=== PATIENT | female | born 1965 | race Two or more races ===

== ENCOUNTER 2019-10-30 15:21 | Inpatient (IN) | payer MEDICARE, OTHER ==
[~2019-10-30] VITALS: Ht 157.5 cm; Wt 92.5 kg
[2019-10-30] MEDS ORDERED: CLON0.5T4 PO (15:37)
[2019-10-30] MEDS ORDERED: OMEP20CA15 PO (15:37)
[2019-10-30] MEDS ORDERED: DIVA-78 PO (15:37)
[2019-10-30] MEDS ORDERED: ATOR20TA PO (15:37)
[2019-10-30] MEDS ORDERED: LOSA100T31 PO (15:37)
[2019-10-30] MEDS ORDERED: BENZ2TAB7 PO (15:37)
[2019-10-30] MEDS ORDERED: TRAZ-182 PO (15:37)
[2019-10-30] MEDS ORDERED: QUET100T PO (15:37)
[2019-10-30] MEDS ORDERED: cholecalciferol PO (15:37)
[2019-10-30] MEDS ORDERED: CALC-1104 PO (15:37)
[2019-10-30] MEDS ORDERED: CALC500T51 PO (15:37)
[2019-10-30] MEDS ORDERED: ASCO-352 PO (15:37)
[2019-10-30] MEDS ORDERED: ACET325T53 PO (15:44)
[2019-10-30 15:47] LABS: BASOPHILS % (AUTO) 0.6 % (0.0-2.0); HEMATOCRIT 34 % (33-45); HEMOGLOBIN 11.3 g/dL (11.5-14.8); LYMPHOCYTES # (AUTO) 2.7 /CMM (0.8-4.8); LYMPHOCYTES % (AUTO) 38.9 % (20.0-44.0); MEAN CORPUSCULAR HGB CONC 33 g/dl (31.0-36.0); MEAN CORPUSCULAR VOLUME 90 fL (82-100); MONOCYTES # (AUTO) 0.5 /CMM (0.1-1.30); MONOCYTES % (AUTO) 7.3 % (2.0-12.0); NEUTROPHILS # (AUTO) 3.7 /CMM (1.8-8.9); NEUTROPHILS % (AUTO) 53.2 % (43.0-81.0); PLATELET COUNT (AUTO) 246 /CMM (150-450); RED BLOOD CELL COUNT(AUTO) 3.76 MIL/uL (4.0-5.2); WHITE BLOOD COUNT (AUTO) 6.9 K/uL (4.3-11.0)
--- NOTE | 2019-10-30 15:52 | NUR ---
NURSING SUP GAVE 219A.
[2019-10-30 15:55] LABS: CALCIUM, SERUM 9.7 mg/dL (8.5-10.1); CARBON DIOXIDE 29 mmol/L (21-32); CHLORIDE 103 mmol/L (98-107); CREATININE 0.7 mg/dL (0.6-1.3); GLUCOSE 101 mg/dL (74-106); POTASSIUM 3.9 mmol/L (3.5-5.1); SODIUM SERUM 140 mmol/L (136-145); UREA NITROGEN, BLOOD 8 mg/dL (7-18)
[2019-10-30 16:00] LABS: ALANINE AMINOTRANSFERASE 10 U/L (12-78); ALCOHOL, BLOOD < 3 mg/dL (0-0); ALKALINE PHOSPHATASE 49 U/L (46-116); ASPARTATE AMINOTRANSFERASE 12 U/L (15-37); BILIRUBIN,DIRECT 0.1 mg/dL (0.0-0.2); BILIRUBIN,TOTAL 0.3 mg/dL (0.2-1.0); TOTAL PROTEIN, SERUM 7.4 g/dL (6.4-8.2)
--- NOTE | 2019-10-30 16:00 | NUR ---
ER- RN PATIENT A/O X4 AWAKE PATIENT STATES SHE CURRENTLY DOES NOT RECIVED HER MEDICATIONS IN HER FACILITY. SHE DOESNT LIKE THAT. THAT PATIENT TALKS ABOUT RANDOM EVENTS. AND IS AWATING TRANSFER TO GPS. WAITING FOR TO GIVE REPORT TO PATIENT PATIENT IS HR 84 SATURATING WELL AT 100 % PATIENT BP 125/ 80 . BED LOCKED LOWEST POSITION 2X RAILS UP.
[2019-10-30 16:03] LABS: ACETAMINOPHEN 0 ug/ml (10-30); SALICYLATE 0.8 mg/dL (2.8-20.0)
--- NOTE | 2019-10-30 17:55 | NUR ---
CALLED [facility] FOR [place].
--- NOTE | 2019-10-30 18:42 | NUR ---
[facility]INKY CELL MAKER AT BEDSIDE.
--- NOTE | 2019-10-30 20:03 | NUR ---
XFER TO GPS UNIT REPORT GIVEN TO CHARITO. PATIENT ACCEPTED. PATIENT IS STABLE CONDITION MEDICALLY
[2019-10-30 23:35] VITALS: BP 119/73
[2019-10-31] MEDS ORDERED: MAG HYDROX/AL HYDROX/SIMETH 30 ML UDC PO PRN (00:30)
[2019-10-31] MEDS ORDERED: TEMAZEPAM 7.5 MG CAPSULE PO PRN (00:30)
[2019-10-31] MEDS ORDERED: LORAZEPAM 0.5 MG TABLET PO PRN (00:30)
--- NOTE | 2019-10-31 03:21 | NUR ---
GPS RN NOTES RECEIVED A 53 Y/O FEMALE FROM ER INITIALLY MATHIEU BRICEÑO. PT ARRIVED ON THIS UNIT AT 2008 VIA STRETCHER WITH 2 ER ESCORTS. PT ADMITTED ON 5150 FOR GD. HOLD WAS PLACED 10/30/2019 @ 1910. PER HOLD PT WAS PLACED ON HOLD DUE TO INCREASED AGITATION, PARANOIA, AND THINKING FACILITY STAFF IS STEALING HER PERSONAL BELONGINGS. REFUSING STAFF TO CARE FOR HER, PREOCCUPIED WITH DIFFERENT SOMATIC COMPLIANT. PT HAS ALSO NOT SLEPT WELL IN THE LAST MONTH. NEEDY, DEMANDING, GETS AGITATED WHEN SHE DOES NOT GET HER WAY. UPON FACE TO FACE EVALUATION, PT PRESENTS A/O X2, APPEARS DEPRESSED, UNCOOPERATIVE, LABILE, PARANOID, DISHEVELED, DISORIENTED AND DISORGANIZED. PT WAS UPSET AND YELLING "I JUST HAD A HEART ATTACK BECAUSE YOU TOOK A PICTURE OF ME". DIFFICULT TO REDIRECT. PT IS AMBULATORY WITH STEADY GAIT. REFUSED TO SIGN ADMISSION PAPERS. HAS IRRITATION AND REDNESS ON HER GROIN AREA, HAS NON-PITTING EDEMA ON BLE. ACCU CHEK DONE/BS 85. NO S/S OF ACUTE DISTRESS. DENIES SI, HI, PAIN OR ANXIETY AT THIS TIME. PT BREATHING IS EVEN AND UNLABORED WITH EQUAL RISE AND FALL OF THE CHEST WITH SPO2 OF 96%. PT IS ALLERGIC TO PENICILLIN AND LITHIUM AND IS FULL CODE. PT HISTORY INCLUDES HTN, PNEUMONIA, DVT, DEPRESSION, BIPOLAR,AND SCHIZOPHRENIA. PT BELONGING AND CONTRABAND WERE CHECKED, PT HAS NO CONTRABAND EXCEPT FOR SHOE LACES WHICH HAS BEEN PLACED IN LOCKED LOCKER. PT ADVISED OF HOLD. PT RIGHTS DISCUSSED AND PT HANDBOOK PROVIDED. GUIDE TO PRESCRIPTION MEDICATION GIVEN. PT WILL BE UNDER THE CARE OF DR DELANEY PSYCHIATRIST AND [facility] INTERNAL [facility]. PT ORIENTED TO UNIT, STAFF, DOCTORS, CARE PLAN AND UNIT POLICIES. BOTH DOCTORS NOTIFIED OF PT ADMISSION AND MED RECONCILIATION DONE. MRSA BOTH NARES DONE AT ER. FALL PRECAUTION INITIATED, SAFETY PRECAUTION INITIATED WITH Q 15MINUTES OBSERVATION. BED IN LOW LOCKED POSITION, SIDE RAILS UP X2. PT NEEDS MET. WILL CONTINUE TO MONITOR FOR SAFETY, MOOD AND BEHAVIOR AND ENDORSE TO AM NURSE.
--- NOTE | 2019-10-31 06:32 | NUR ---
GPS RN NOTE CALLED PT SON/NEXT-OF-KIN BERNARD FLORES AT 0630 AND LEFT A MESSAGE FOR HIM TO CALL [facility]. WILL ENDORSE TO AM NURSE.PT SLEEPING COMFORTABLY WITH NO S/S OF RESPIRATORY DISTRESS.
[2019-10-31 07:54] LABS: CREATININE 0.6 mg/dL (0.6-1.3)
[2019-10-31 08:00] VITALS: BP 101/59
[2019-10-31] MEDS: LORAZEPAM 0.5 MG TABLET PO PRN (09:15)
--- NOTE | 2019-10-31 11:09 | NUR ---
FACILITY CONTACT: SW contacted [facility] Address: [address] [place] [address] and spoke with Myesha, physician support coordinator who stated pt is able to return to the facility once stable for discharge. Myesha, stated that pt is self responsible and that her daughter and son are not involved with pts care and treatment.
[2019-10-31] MEDS ORDERED: CALCIUM CARBONATE 500 MG TAB.CHEW PO PRN (13:00)
[2019-10-31] MEDS: LOSARTAN POTASSIUM 50 MG TABLET PO SCH (13:00)
[2019-10-31] MEDS: PANTOPRAZOLE 40 MG TABLET.DR PO SCH (13:11)
--- NOTE | 2019-10-31 13:55 | NUR ---
INITIAL DISCHARGE PLAN: Pt will return to [facility] Address: [address] [place] [address] . AZUL spoke with Myesha hospital wellness coordinator who stated pt is able to return to the facility once stable for discharge. AZUL will help form a safe and proper discharge in collaboration with .
--- NOTE | 2019-10-31 15:19 | NUR ---
FACILITY CONTACT: AZUL received a call from Angi, director non profit at [facility] Address: [address] [place] [address] stating that pt use to be a pt at their facility before pt was transferred to [facility] and wishes for pt to be transferred to their facility once pt is stable. AZUL stated that she will consult with MD and pt for appropriate discharge planning. Angi understood.
[2019-10-31 16:00] VITALS: BP 129/72
[2019-10-31] MEDS: BENZTROPINE MESYLATE (1 MG) 1 MG TABLET PO SCH (16:20)
[2019-10-31] MEDS: DIVALPROEX SODIUM 500 MG TABLET.DR PO SCH (16:20)
[2019-10-31 20:29] VITALS: BP_SYST 118; BP_SYST 138; BP_DIAS 71; BP_DIAS 73
[2019-10-31] MEDS ORDERED: OLANZAPINE 5 MG TABLET PO SCH (21:00)
[2019-10-31] MEDS: ATORVASTATIN 10 MG TABLET PO SCH (21:06)
--- NOTE | 2019-10-31 21:34 | NUR ---
GPS/PRODUCE SERVICE TEAM MEMBER NURSING NOTES: PT. IN HER ROOM AWAKE. NO DISTRESS OR AGITATION NOTED. RESTLESS AND NEEDY AT TIMES. NO C/O PAIN OR DISCOMFORT. SAFETY ENVIRONMENT OBSERVED AT ALL TIMES. WILL CONTINUE TO MONITOR Q 15 MIN FOR SAFETY AND BEHAVIOR.
[2019-11-01 07:35] LABS: CALCIUM, SERUM 8.7 mg/dL (8.5-10.1); CREATININE 0.7 mg/dL (0.6-1.3); POTASSIUM 3.6 mmol/L (3.5-5.1)
[2019-11-01 07:43] LABS: BASOPHILS % (AUTO) 0.3 % (0.0-2.0); EOSINOPHILS % (AUTO) 0.1 % (0.0-6.0); HEMATOCRIT 33 % (33-45); HEMOGLOBIN 10.9 g/dL (11.5-14.8); LYMPHOCYTES # (AUTO) 3.2 /CMM (0.8-4.8); LYMPHOCYTES % (AUTO) 50.6 % (20.0-44.0); MEAN CORPUSCULAR HGB CONC 33 g/dl (31.0-36.0); MEAN CORPUSCULAR VOLUME 90 fL (82-100); MONOCYTES # (AUTO) 0.5 /CMM (0.1-1.30); MONOCYTES % (AUTO) 8.2 % (2.0-12.0); NEUTROPHILS # (AUTO) 2.6 /CMM (1.8-8.9); NEUTROPHILS % (AUTO) 40.8 % (43.0-81.0); PLATELET COUNT (AUTO) 238 /CMM (150-450); RED BLOOD CELL COUNT(AUTO) 3.67 MIL/uL (4.0-5.2); WHITE BLOOD COUNT (AUTO) 6.3 K/uL (4.3-11.0)
[2019-11-01 08:29] VITALS: BP 118/63
[2019-11-01] MEDS: BENZTROPINE MESYLATE (1 MG) 1 MG TABLET PO SCH ×2 (08:34→16:40)
[2019-11-01] MEDS: DIVALPROEX SODIUM 500 MG TABLET.DR PO SCH ×2 (08:34→16:41)
[2019-11-01] MEDS: CALCIUM CARBONATE (1250) 500 MG TABLET PO SCH (08:34)
[2019-11-01] MEDS: LOSARTAN POTASSIUM 50 MG TABLET PO SCH (08:34)
[2019-11-01] MEDS: PANTOPRAZOLE 40 MG TABLET.DR PO SCH (08:34)
[2019-11-01] MEDS: ASCORBIC ACID 500 MG TABLET PO SCH (08:36)
[2019-11-01] MEDS: OLANZAPINE 2.5 MG TABLET PO SCH (12:36)
[2019-11-01 16:00] VITALS: BP 145/77
--- NOTE | 2019-11-01 16:35 | NUR ---
RN-CO: Patient is yelling " I don't like Filipinos !" " They are impostors." I speak a lot of language !" " No Filipinos should not be in [place]!"
[2019-11-01] MEDS: ACETAMINOPHEN 325 MG TABLET PO PRN (16:41)
[2019-11-01] MEDS: LORAZEPAM 0.5 MG TABLET PO PRN (16:45)
[2019-11-01 20:00] VITALS: BP 101/60
[2019-11-01] MEDS: ATORVASTATIN 10 MG TABLET PO SCH (21:17)
[2019-11-01] MEDS: OLANZAPINE 5 MG TABLET PO SCH (21:17)
[2019-11-02 08:00] VITALS: BP 142/72
[2019-11-02] MEDS: PANTOPRAZOLE 40 MG TABLET.DR PO SCH (08:21)
[2019-11-02] MEDS: ASCORBIC ACID 500 MG TABLET PO SCH (08:24)
[2019-11-02] MEDS: LOSARTAN POTASSIUM 50 MG TABLET PO SCH (08:24)
[2019-11-02] MEDS: OLANZAPINE 2.5 MG TABLET PO SCH (08:24)
[2019-11-02] MEDS: BENZTROPINE MESYLATE (1 MG) 1 MG TABLET PO SCH ×2 (08:24→16:34)
[2019-11-02] MEDS: DIVALPROEX SODIUM 500 MG TABLET.DR PO SCH ×2 (08:24→16:34)
[2019-11-02] MEDS: CALCIUM CARBONATE (1250) 500 MG TABLET PO SCH (08:24)
--- NOTE | 2019-11-02 10:07 | NUR ---
GPS RN NOTE: RECEIVED PATIENT LYING IN BED. SHOWERED AND PERFORMED AM CARE. ATE FULL MEAL FOR BREAKFAST. PATIENT IS COOPERATIVE WITH PLAN OF CARE AND MEDICATION REGIMEN. DENIES PSYCHIATRIC PROBLEMS BUT DOES ADMIT TO ANXIETY. STATES THAT SHE HAS A LOT OF MEDICAL DIAGNOSES AND HAS BEEN HOSPITALIZED MANY TIMES BEFORE. PT IS AOX2, HYPERVERBAL, FRIENDLY. DENIES SI/HI AND VAH. BED IN LOCKED POSITION, 2 SIDE RAILS UP. FALL PRECAUTIONS IN PLACE. ENVIRONMENTAL CHECKS DONE. WILL CONTINUE TO MONITOR Q15 FOR MOOD, SAFETY AND BEHAVIOR.
[2019-11-02 16:00] VITALS: BP 155/71
[2019-11-02 20:00] VITALS: BP 113/69
[2019-11-02] MEDS: LORAZEPAM 0.5 MG TABLET PO PRN (20:02)
--- NOTE | 2019-11-02 20:08 | NUR ---
GPS RN NOTE RECEIVED PATIENT IN THE BATHROOM, AWAKE, ALERT AND ORIENTED X2. PT CAME OUT AND WAS IN HALLWAY SITTING IN W/C, RESTLESS, DISORGANIZED AND DISORIENTED. RESPONDING TO INTERNAL STIMULI. TALKING TO SELF AND TO ANY STAFF THAT WALKS BY WITHOUT MAKING ANY SENSE. THIS NURSE TRIED TO REORIENT PT TO PRESENT SITUATION BUT PT KEPT ON TALKING ABOUT HOW SHE WENT TO [facility], HOW SHE CALLED 911 IN A HOSPITAL, HOW [place] ARE EVERYWHERE. PT GIVEN ATIVAN 0.5MG 1 TAB PO. NO S/S OF ANY DISTRESS AT THIS TIME. PT BREATHING IS EVEN,UNLABORED WITH EQUAL RISE AND FALL OF THE CHEST. ON ROOM AIR. SEEN IN UNIT WALKING AND TALKING TO STAFF. NO COMPLAINS OF PAIN. PT IS MEDICATION COMPLIANT. SAFETY CHECKS DONE. FALL PRECAUTION CONTINUED. BED ALARM ON. BED IN LOW LOCKED POSITION. CALL LIGHT WITHIN REACH. OFFERED SNACKS AND FLUID TOLERATED. WILL CONTINUE TO MONITOR Q15MIN FOR MOOD, SAFETY AND BEHAVIOR.
--- NOTE | 2019-11-02 20:16 | NUR ---
PLEASE DISREGARD BLADIMIR DAILY FS FOR THIS PT WRITTEN 1949, NOTE WAS WRITTEN BEFORE 1999
[2019-11-02] MEDS: OLANZAPINE 5 MG TABLET PO SCH (21:37)
[2019-11-02] MEDS: ATORVASTATIN 10 MG TABLET PO SCH (21:38)
[2019-11-02] MEDS: TEMAZEPAM 7.5 MG CAPSULE PO PRN (22:40)
[2019-11-02] MEDS: ACETAMINOPHEN 325 MG TABLET PO PRN (22:40)
--- NOTE | 2019-11-02 22:42 | NUR ---
GPS RN NOTE PT COMPLAINED OF BLE KNEE PAIN, TYLENOL 325MG 2 TABS 650 GIVEN PO. RESTORIL 7.5MG 1 TAB GIVEN PO PER PT REQUEST D/O INABILITY TO SLEEP. WILL CONTINUE TO MONITOR PT.
[2019-11-03] MEDS: BENZTROPINE MESYLATE (1 MG) 1 MG TABLET PO SCH ×2 (08:01→16:20)
[2019-11-03] MEDS: PANTOPRAZOLE 40 MG TABLET.DR PO SCH (08:01)
[2019-11-03] MEDS: CALCIUM CARBONATE (1250) 500 MG TABLET PO SCH (08:01)
[2019-11-03] MEDS: LOSARTAN POTASSIUM 50 MG TABLET PO SCH (08:02)
[2019-11-03] MEDS: DIVALPROEX SODIUM 500 MG TABLET.DR PO SCH ×2 (08:02→16:20)
[2019-11-03] MEDS: ASCORBIC ACID 500 MG TABLET PO SCH (08:02)
[2019-11-03] MEDS: OLANZAPINE 2.5 MG TABLET PO SCH (08:02)
[2019-11-03 08:06] VITALS: BP 128/70
--- NOTE | 2019-11-03 09:06 | NUR ---
GPS RN NURSING NOTE: RECEIVED PATIENT LYING IN BED. ATE FULL MEAL FOR BREAKFAST. PATIENT IS DISPLAYING NO S/S OF APPARENT DISTRESS AT THIS TIME. PATIENT BREATHING IS UNLABORED WITH EQUAL RISE AND FALL OF THE CHEST.PATIENT IS COOPERATIVE WITH PLAN OF CARE AND MEDICATION REGIMEN. DENIES PSYCHIATRIC PROBLEMS BUT DOES ADMIT TO ANXIETY. STATES THAT SHE HAS A LOT OF MEDICAL DIAGNOSES AND HAS BEEN HOSPITALIZED MANY TIMES BEFORE. PT IS AOX2, HYPERVERBAL, FRIENDLY. DENIES SI/HI AND VAH. BED IN LOCKED POSITION, 2 SIDE RAILS UP. FALL PRECAUTIONS IN PLACE. ENVIRONMENTAL CHECKS DONE. WILL CONTINUE TO MONITOR Q15 FOR MOOD, SAFETY AND BEHAVIOR.
[2019-11-03] MEDS: LORAZEPAM 0.5 MG TABLET PO PRN (10:52)
[2019-11-03] MEDS: ACETAMINOPHEN 325 MG TABLET PO PRN ×2 (10:54→23:48)
[2019-11-03] MEDS ORDERED: TRAZODONE 50 MG TABLET PO PRN (12:00)
[2019-11-03] MEDS ORDERED: ALBUTEROL FS 2.5 MG/0.5 ML VIAL.NEB NEB PRN (13:30)
[2019-11-03 15:57] VITALS: BP 130/70
[2019-11-03 20:06] VITALS: BP 145/79
[2019-11-03] MEDS: OLANZAPINE 5 MG TABLET PO SCH (21:46)
[2019-11-03] MEDS: ATORVASTATIN 10 MG TABLET PO SCH (21:47)
--- NOTE | 2019-11-03 22:13 | NUR ---
GPS RN NOTE PT RIGHT FOOT EDEMA HAS CHANGED FROM NON-PITTING TO ABOUT +1. PT HAS RECENTLY HAD HER FOOT SCANNED AT [facility]. PER AM NURSE, RELEASE OF INFORMATION FORM HAS BEEN SIGNED BY PT AND STAFF TRIED TO SEND FAX, BUT [facility] FAX LINE WAS NOT GOING THROUGH. WILL ENDORSE TO AM SHIFT TO FAX FORMS AGAIN. WILL CONTINUE TO MONITOR PT.
[2019-11-03] MEDS: TEMAZEPAM 7.5 MG CAPSULE PO PRN (23:47)
--- NOTE | 2019-11-04 06:44 | NUR ---
PT SKIN ASSESSMENT DONE, PICTURES TAKEN AND PLACED IN CHART. NO NEW SKIN PROBLEMS. PT AWAKE, ALERT AND ORIENTED X 2, SITTING IN W/C IN HALLWAY. NO S/S OF ANY DISTRESS. NO COMPLAINS OF PAIN. WILL ENDORSE TO AM NURSE.
[2019-11-04] MEDS: PANTOPRAZOLE 40 MG TABLET.DR PO SCH (07:30)
[2019-11-04 08:00] VITALS: BP 134/93
[2019-11-04] MEDS: OLANZAPINE 2.5 MG TABLET PO SCH (08:18)
[2019-11-04] MEDS: CALCIUM CARBONATE (1250) 500 MG TABLET PO SCH (08:18)
[2019-11-04] MEDS: BENZTROPINE MESYLATE (1 MG) 1 MG TABLET PO SCH ×2 (08:19→16:20)
[2019-11-04] MEDS: LORAZEPAM 0.5 MG TABLET PO PRN ×3 (08:19→22:51)
[2019-11-04] MEDS: DIVALPROEX SODIUM 500 MG TABLET.DR PO SCH ×2 (08:19→16:22)
[2019-11-04] MEDS: ASCORBIC ACID 500 MG TABLET PO SCH (08:19)
[2019-11-04] MEDS: LOSARTAN POTASSIUM 50 MG TABLET PO SCH (08:22)
[2019-11-04] MEDS: FERROUS SULFATE (325 MG) 325 MG/TAB TABLET PO SCH (08:22)
--- NOTE | 2019-11-04 15:03 | NUR ---
GROUP NOTE: Pt was present in group on this present day discussing the topic of "discharge planning." S: "Dr. Combs is my commissioner public works and I will go to an apartment and apply for section 8 because that is my right and I am disabled. I have a informatics nurse specialist and that is what I want and that is what I demand, thank you Pepe Rowe." O: SW attempted to provide insight into mental illness and pt became argumentative stating that she does not have a mental illness and that she only has medical issues. SW also informed SW that her psychiatrist is Dr. Franz and she stated it was not and that her informatics nurse specialist chose Dr. Combs. Pt was frequently redirected as she was hyperverbal and manic. A: Pt was hyper verbal and manic and was frequently interrupting the group and was unable to stay on topic. P: SW will continue to assess pts level of insight into her mental illness and ability to participate in group milieu.
--- NOTE | 2019-11-04 15:32 | NUR ---
RN NOTE: Medicated with ativan 0.5 mg po for anxirty will continue to monitor .
[2019-11-04] MEDS: ACETAMINOPHEN 325 MG TABLET PO PRN (15:37)
[2019-11-04 16:00] VITALS: BP 151/93
--- NOTE | 2019-11-04 19:20 | NUR ---
RN OPENING NOTES: PT. RESTING IN BED ,CONFUSED PARANOID , HYPERVERBAL ,DISORGNIZED EASILY AGITATED , ALL NEEDS ATTENDED ANTICIPATED, ENCOURAGED PT. TO VERBALIZED ANY FEELING , NO ACUTE DISTRESS NOTED , NEEDS FREQUENTLY REDIRECTIONS , REALITY ORIENTIONS PROVIDED, WILL CONTINUITY WITH CARE.
[2019-11-04 20:01] VITALS: BP 128/80
[2019-11-04] MEDS ORDERED: OLANZAPINE 5 MG TABLET PO SCH (21:00)
[2019-11-04] MEDS: ATORVASTATIN 10 MG TABLET PO SCH (21:04)
--- NOTE | 2019-11-04 22:52 | NUR ---
RN NOTES : ANXIETY PT. C/O FEELING ANXIETY , ATIVAN 0.5 MG PO PRN GIVEN PER PT. REQUEST, WILL CONTINUE TO MONITOR.
[2019-11-05 06:45] LABS: BASOPHILS % (AUTO) 0.6 % (0.0-2.0); HEMATOCRIT 37 % (33-45); HEMOGLOBIN 12.4 g/dL (11.5-14.8); LYMPHOCYTES # (AUTO) 4.2 /CMM (0.8-4.8); LYMPHOCYTES % (AUTO) 56.4 % (20.0-44.0); MEAN CORPUSCULAR HGB CONC 33 g/dl (31.0-36.0); MEAN CORPUSCULAR VOLUME 90 fL (82-100); MONOCYTES # (AUTO) 0.6 /CMM (0.1-1.30); MONOCYTES % (AUTO) 8.2 % (2.0-12.0); NEUTROPHILS # (AUTO) 2.6 /CMM (1.8-8.9); NEUTROPHILS % (AUTO) 34.8 % (43.0-81.0); PLATELET COUNT (AUTO) 303 /CMM (150-450); RED BLOOD CELL COUNT(AUTO) 4.17 MIL/uL (4.0-5.2); WHITE BLOOD COUNT (AUTO) 7.4 K/uL (4.3-11.0)
[2019-11-05 07:13] LABS: ALBUMIN 3.2 g/dL (3.4-5.0); BILIRUBIN,TOTAL 0.3 mg/dL (0.2-1.0); CREATININE 0.8 mg/dL (0.6-1.3); POTASSIUM 4.2 mmol/L (3.5-5.1); TOTAL PROTEIN, SERUM 7.9 g/dL (6.4-8.2)
[2019-11-05] MEDS: PANTOPRAZOLE 40 MG TABLET.DR PO SCH (07:59)
[2019-11-05 08:00] VITALS: BP 140/76
[2019-11-05] MEDS: OLANZAPINE 2.5 MG TABLET PO SCH (08:00)
[2019-11-05] MEDS: DIVALPROEX SODIUM 500 MG TABLET.DR PO SCH ×3 (08:00→16:31)
[2019-11-05] MEDS: ASCORBIC ACID 500 MG TABLET PO SCH (08:00)
[2019-11-05] MEDS: FERROUS SULFATE (325 MG) 325 MG/TAB TABLET PO SCH (08:00)
[2019-11-05] MEDS: LOSARTAN POTASSIUM 50 MG TABLET PO SCH (08:00)
[2019-11-05] MEDS: CALCIUM CARBONATE (1250) 500 MG TABLET PO SCH (08:00)
[2019-11-05] MEDS: BENZTROPINE MESYLATE (1 MG) 1 MG TABLET PO SCH ×2 (08:00→16:30)
[2019-11-05 09:11] LABS: NEUTROPHILS % (MANUAL) 31 (42-76)
[2019-11-05 09:12] LABS: LYMPHOCYTES % (MANUAL) 52 % (16-48); MONOCYTES % (MANUAL) 17 % (0-11.0)
--- NOTE | 2019-11-05 09:21 | NUR ---
GPS RN NOTE: RECEIVED PATIENT LYING IN BED. ATE FULL MEAL FOR BREAKFAST. PATIENT IS COOPERATIVE WITH PLAN OF CARE AND MEDICATION REGIMEN. ANXIOUS. OFFERED PRN MEDICATION. PT IS AOX2, HYPERVERBAL, FRIENDLY. DENIES SI/HI AND VAH. BED IN LOCKED POSITION, 2 SIDE RAILS UP. FALL PRECAUTIONS IN PLACE. ENVIRONMENTAL CHECKS DONE. WILL CONTINUE TO MONITOR Q15 FOR MOOD, SAFETY AND BEHAVIOR.
[2019-11-05] MEDS ORDERED: OLANZAPINE 2.5 MG TABLET PO ONE (09:30)
[2019-11-05] MEDS: LORAZEPAM 0.5 MG TABLET PO PRN (09:34)
--- NOTE | 2019-11-05 14:59 | NUR ---
GROUP NOTE: Pt was present in group discussing the topic of "insight into mental illness." S: "I am reading because I am becoming a doctor, a nurse, and 7th grade social studies teacher. I don't have mental problems everyone else here does. I'm going to a doctor and nurse conference at 2:30." O: Pt is hyperverbal and unable to comprehend group dynamic. Pt does not wait her turn to speak and rambles unrelated nonsensical things A: Pts reality and insight is impaired pt has not gained awareness of the reason for hospitalization and does not acknowledge she has a mental illness. P: Pt will continue to encourage regulation of mood and medication compliance.
[2019-11-05 16:00] VITALS: BP 137/73
[2019-11-05] MEDS: MAGNESIUM HYDROXIDE 30 ML UDC PO PRN (18:47)
[2019-11-05 20:29] VITALS: BP 135/78
[2019-11-05] MEDS: OLANZAPINE 5 MG TABLET PO SCH (21:07)
[2019-11-05] MEDS: ACETAMINOPHEN 325 MG TABLET PO PRN (21:08)
[2019-11-05] MEDS: ATORVASTATIN 10 MG TABLET PO SCH (21:08)
--- NOTE | 2019-11-05 21:08 | NUR ---
rn gps notes patient complaint of pain to ble states "06/06 can i have tylenol i have arthritis " prn tylenol given as ordered will continue to monitor for effectiveness.
[2019-11-06] MEDS: TEMAZEPAM 7.5 MG CAPSULE PO PRN ×2 (00:09→23:49)
[2019-11-06] MEDS: ACETAMINOPHEN 325 MG TABLET PO PRN (05:15)
[2019-11-06 08:00] VITALS: BP 146/78
[2019-11-06] MEDS: PANTOPRAZOLE 40 MG TABLET.DR PO SCH (08:26)
[2019-11-06] MEDS: BENZTROPINE MESYLATE (1 MG) 1 MG TABLET PO SCH ×2 (08:26→17:06)
[2019-11-06] MEDS: LOSARTAN POTASSIUM 50 MG TABLET PO SCH (08:26)
[2019-11-06] MEDS: DIVALPROEX SODIUM 500 MG TABLET.DR PO SCH ×3 (08:26→17:06)
[2019-11-06] MEDS: OLANZAPINE 2.5 MG TABLET PO SCH (08:26)
[2019-11-06] MEDS: ASCORBIC ACID 500 MG TABLET PO SCH (08:26)
[2019-11-06] MEDS: CALCIUM CARBONATE (1250) 500 MG TABLET PO SCH (08:26)
[2019-11-06] MEDS: FERROUS SULFATE (325 MG) 325 MG/TAB TABLET PO SCH (08:26)
[2019-11-06] MEDS: LORAZEPAM 0.5 MG TABLET PO PRN ×2 (08:26→14:08)
--- NOTE | 2019-11-06 08:55 | NUR ---
SNF REFERRAL: AZUL faxed SNF referral to Angi, director of undergraduate admissions at [facility] Address: [address] [place] [address] for review.
--- NOTE | 2019-11-06 15:03 | NUR ---
GROUP NOTE: Pt was present in group discussing the topic of "decision-making." Pt was very disorganized and paranoid, making nonsensical statements and is hypomanic. Pt is saying the staff urinated on her clothes and that they are stealing from her and also states that she does not have a mental illness. Pt kept interrupting group and was difficult to redirect her. Pt was unable to stay on topic.
[2019-11-06 16:00] VITALS: BP 158/96
--- NOTE | 2019-11-06 19:15 | NUR ---
GPS RN NOTE RECEIVED PATIENT RESTING IN HER BED, AWAKE, ALERT AND ORIENTED X2, DISORGANIZED, HYPERVERBAL AT TIMES. DENIES SI/HI AT THIS TIME. NO S/S OF ANY DISTRESS AT THIS TIME. PT BREATHING IS EVEN UNLABORED WITH EQUAL RISE AND FALL OF THE CHEST. STABLE ON ROOM AIR. NO C/O PAIN VERBALIZED AT THIS TIME. PT IS MEDICATION COMPLIANT. ENVIRONMENTAL SAFETY CHECKS DONE. FALL PRECAUTION CONTINUED. BED ALARM ON. BED IN LOW LOCKED POSITION. CALL BAZAN WITHIN REACH. WILL CONTINUE TO MONITOR Q15MIN FOR MOOD, SAFETY AND BEHAVIOR
[2019-11-06 20:00] VITALS: BP 147/79
--- NOTE | 2019-11-06 21:10 | NUR ---
REFUSED BODY ASSESSMENT PATIENT REFUSED FULL BODY ASSESSMENT TONIGHT, PATIENT WANTED TO SLEEP & NOT TO BE BOTHERED. DESPITE OF RISKS & BENEFIT EXPLANATIONS, PATIENT REFUSED FULL BODY ASSESSMENT.
[2019-11-06] MEDS: ATORVASTATIN 10 MG TABLET PO SCH (21:23)
[2019-11-06] MEDS: OLANZAPINE 5 MG TABLET PO SCH (21:23)
--- NOTE | 2019-11-06 23:50 | NUR ---
GPS RN NOTE: INSOMNIA PATIENT VERBALIZED THAT SHE IS UNABLE TO SLEEP & REQUESTED TO GET SLEEPING PILL. PRN RESTORIL 7.5 MG 1 CAP PO GIVEN. WILL CONTINUE TO MONITOR FOR EFFECTIVENESS OF RESTORIL.
[2019-11-07] MEDS: ACETAMINOPHEN 325 MG TABLET PO PRN (00:06)
--- NOTE | 2019-11-07 00:07 | NUR ---
PRN TYLENOL GIVEN PATIENT C/O BOTH LEGS PAIN 11/04 & REQUESTED TO GET PAIN MEDICINE. PRN TYLENOL 650 MG PO GIVEN. WILL CONTINUE TO MONITOR FOR ANY CHANGES.
[2019-11-07 08:00] VITALS: BP 131/66
[2019-11-07] MEDS: DIVALPROEX SODIUM 500 MG TABLET.DR PO SCH ×3 (08:12→16:32)
[2019-11-07] MEDS: BENZTROPINE MESYLATE (1 MG) 1 MG TABLET PO SCH ×2 (08:12→16:32)
[2019-11-07] MEDS: PANTOPRAZOLE 40 MG TABLET.DR PO SCH (08:12)
[2019-11-07] MEDS: ASCORBIC ACID 500 MG TABLET PO SCH (08:12)
[2019-11-07] MEDS: LOSARTAN POTASSIUM 50 MG TABLET PO SCH (08:12)
[2019-11-07] MEDS: OLANZAPINE 2.5 MG TABLET PO SCH ×2 (08:12→12:13)
[2019-11-07] MEDS: CALCIUM CARBONATE (1250) 500 MG TABLET PO SCH (08:13)
[2019-11-07] MEDS: FERROUS SULFATE (325 MG) 325 MG/TAB TABLET PO SCH (08:13)
--- NOTE | 2019-11-07 09:02 | NUR ---
SNF REFERRAL: SW received a call from Angi, director funds development at [facility] Address: [address] [place] [address] stating pt has been accepted to the facility.
[2019-11-07 16:00] VITALS: BP 127/85
[2019-11-07] MEDS: LORAZEPAM 0.5 MG TABLET PO PRN (18:35)
[2019-11-07] MEDS: MAGNESIUM HYDROXIDE 30 ML UDC PO PRN (18:35)
[2019-11-07 20:00] VITALS: BP 154/82
--- NOTE | 2019-11-07 20:21 | NUR ---
GPS/QUANTITATIVE RESEARCHER NURSING NOTES: PT. IN HER ROOM AWAKE. NO DISTRESS OR AGITATION NOTED. RESTLESS AND NEEDY AT TIMES. REDIRECTED. NO C/O PAIN OR DISCOMFORT. SAFETY ENVIRONMENT OBSERVED AT ALL TIMES. WILL CONTINUE TO MONITOR Q 15 MIN FOR SAFETY AND BEHAVIOR.
[2019-11-07] MEDS: OLANZAPINE 5 MG TABLET PO SCH (21:01)
[2019-11-07] MEDS: ATORVASTATIN 10 MG TABLET PO SCH (21:01)
[2019-11-08] MEDS: TEMAZEPAM 7.5 MG CAPSULE PO PRN ×2 (01:21→22:14)
[2019-11-08 08:00] VITALS: BP 159/99
[2019-11-08] MEDS: BENZTROPINE MESYLATE (1 MG) 1 MG TABLET PO SCH ×2 (08:04→16:02)
[2019-11-08] MEDS: OLANZAPINE 2.5 MG TABLET PO SCH ×2 (08:04→12:21)
[2019-11-08] MEDS: LOSARTAN POTASSIUM 50 MG TABLET PO SCH (08:05)
[2019-11-08] MEDS: DIVALPROEX SODIUM 500 MG TABLET.DR PO SCH ×3 (08:05→16:02)
[2019-11-08] MEDS: CALCIUM CARBONATE (1250) 500 MG TABLET PO SCH (08:05)
[2019-11-08] MEDS: PANTOPRAZOLE 40 MG TABLET.DR PO SCH (08:06)
[2019-11-08] MEDS: FERROUS SULFATE (325 MG) 325 MG/TAB TABLET PO SCH (08:06)
[2019-11-08] MEDS: ASCORBIC ACID 500 MG TABLET PO SCH (08:06)
--- NOTE | 2019-11-08 09:48 | NUR ---
Dr. Valentien as the program medical director of the unit gave an order for denial of right to do room search to look for the missing shower head with the hose. Staffs made a thorough search and the thing that we are looking is not in the room.
[2019-11-08] MEDS: ACETAMINOPHEN 325 MG TABLET PO PRN (12:34)
[2019-11-08 15:56] VITALS: BP 117/73
[2019-11-08] MEDS: LORAZEPAM 0.5 MG TABLET PO PRN (16:29)
[2019-11-08] MEDS ORDERED: DIVALPROEX SODIUM 500 MG TABLET.DR PO ONE (17:01)
--- NOTE | 2019-11-08 17:27 | NUR ---
GPS RN NURSING NOTES: PT. IN IN THE HALLWAY RESTLESS AGITATED ATIVAN 0.5 MG PO PRN GIVEN. PT NEEDY AT TIMES. REDIRECTED. NO C/O PAIN OR DISCOMFORT. SAFETY ENVIRONMENT OBSERVED AT ALL TIMES. WILL CONTINUE TO MONITOR Q 15 MIN FOR SAFETY AND BEHAVIOR.
--- NOTE | 2019-11-08 19:20 | NUR ---
RN NOTES: PT. IN HALLWAY HYPERVERBAL, PARANOID , NEEDY ,DISORGNIZED EASILY AGITATED , TALKING TO SELF, ALL NEEDS ATTENDED ANTICIPATED, ENCOURAGED PT. TO VERBALIZED ANY FEELING , NO ACUTE DISTRESS NOTED , NEEDS FREQUENTLY REDIRECTIONS , REALITY ORIENTIONS PROVIDED, WILL CONTINUITY WITH CARE.
[2019-11-08 20:26] VITALS: BP 127/85
[2019-11-08] MEDS: OLANZAPINE 5 MG TABLET PO SCH (20:48)
[2019-11-08] MEDS: ATORVASTATIN 10 MG TABLET PO SCH (21:20)
--- NOTE | 2019-11-08 22:15 | NUR ---
RN NOTES: INSOMNIA PT. C/O INSOMNIA RESTORIL 7.5 MG PO PRN GIVEN , PER PT. REQUEST WILL CONTINUE TO MONITOR.
[2019-11-09 08:00] VITALS: BP 159/84
[2019-11-09] MEDS: DIVALPROEX SODIUM 500 MG TABLET.DR PO SCH ×2 (08:19→12:20)
[2019-11-09] MEDS: PANTOPRAZOLE 40 MG TABLET.DR PO SCH (08:19)
[2019-11-09] MEDS: OLANZAPINE 2.5 MG TABLET PO SCH (08:20)
[2019-11-09] MEDS: ASCORBIC ACID 500 MG TABLET PO SCH (08:20)
[2019-11-09] MEDS: CALCIUM CARBONATE (1250) 500 MG TABLET PO SCH (08:20)
[2019-11-09] MEDS: BENZTROPINE MESYLATE (1 MG) 1 MG TABLET PO SCH ×2 (08:20→16:23)
[2019-11-09] MEDS: FERROUS SULFATE (325 MG) 325 MG/TAB TABLET PO SCH (08:20)
[2019-11-09] MEDS: LOSARTAN POTASSIUM 50 MG TABLET PO SCH (08:20)
[2019-11-09] MEDS: LORAZEPAM 0.5 MG TABLET PO PRN ×2 (13:43→20:29)
--- NOTE | 2019-11-09 13:46 | NUR ---
GPS/RN-NOTES PATIENT IN THE NURSE STATION HYPERVERBAL IRRITABLE VERY DEMANDING AND REQUESTING ATIVAN ,STATED" GIVE ME MY ATIVAN, I'M VERY EDUCATED AND I KNOW MY MEDICATIONS". ATIVAN 0.5MG P.O GIVEN PRN ORDER. WILL CONT. MONITORING FOR SAFETY AND BEHAVIOR.
--- NOTE | 2019-11-09 14:15 | NUR ---
GPS/RN-NOTES PATIENT IN THE DAY ROOM WATCHING TV CALM,NO ACUTE DISTRESS NOTED.
[2019-11-09 16:00] VITALS: BP 117/71
[2019-11-09] MEDS: DIVALPROEX SODIUM 250 MG TABLET.DR PO SCH (16:23)
--- NOTE | 2019-11-09 20:08 | NUR ---
RN NOTES: PT. IN HALLWAY HYPERVERBAL, TALKING TO SELF .LOUD LAUGHING SINGING, PARANOID , NEEDY ,DISORGNIZED EASILY AGITATED , TALKING TO SELF, ALL NEEDS ATTENDED ANTICIPATED, ENCOURAGED PT. TO VERBALIZED ANY FEELING , NO ACUTE DISTRESS NOTED , NEEDS FREQUENTLY REDIRECTIONS , REALITY ORIENTIONS PROVIDED, WILL CONTINUITY WITH CARE.
--- NOTE | 2019-11-09 20:32 | NUR ---
RN NOTES: ANXIETY PT.C/O ANXIOUS,HYPERVERBAL, LOUD TALKING TO SELF , PARANOID, ATIVAN 0.5 MG PO PRN GIVEN GIVEN, WILL CONTINUE TO MONITOR.
[2019-11-09 20:47] VITALS: BP 96/54
[2019-11-09 21:03] VITALS: BP 103/62
[2019-11-09] MEDS: OLANZAPINE 5 MG TABLET PO SCH (21:15)
[2019-11-09] MEDS: ATORVASTATIN 10 MG TABLET PO SCH (21:16)
[2019-11-09] MEDS: ACETAMINOPHEN 325 MG TABLET PO PRN (23:00)
[2019-11-10 08:00] VITALS: BP 134/78
[2019-11-10] MEDS: LOSARTAN POTASSIUM 50 MG TABLET PO SCH (08:47)
[2019-11-10] MEDS: PANTOPRAZOLE 40 MG TABLET.DR PO SCH (08:48)
[2019-11-10] MEDS: DIVALPROEX SODIUM 500 MG TABLET.DR PO SCH ×2 (08:48→12:36)
[2019-11-10] MEDS: CALCIUM CARBONATE (1250) 500 MG TABLET PO SCH (08:48)
[2019-11-10] MEDS: FERROUS SULFATE (325 MG) 325 MG/TAB TABLET PO SCH (08:48)
[2019-11-10] MEDS: ASCORBIC ACID 500 MG TABLET PO SCH (08:48)
[2019-11-10] MEDS: OLANZAPINE 2.5 MG TABLET PO SCH (08:48)
[2019-11-10] MEDS: BENZTROPINE MESYLATE (1 MG) 1 MG TABLET PO SCH ×2 (08:48→16:36)
[2019-11-10] MEDS: LORAZEPAM 0.5 MG TABLET PO PRN ×2 (09:51→16:46)
[2019-11-10] MEDS: ACETAMINOPHEN 325 MG TABLET PO PRN ×2 (09:51→16:46)
[2019-11-10 16:00] VITALS: BP 135/98
[2019-11-10] MEDS: DIVALPROEX SODIUM 250 MG TABLET.DR PO SCH (16:45)
--- NOTE | 2019-11-10 16:50 | NUR ---
GPS RN NOTE: DEPAKOTE REFUSAL PT REFUSED TO TAKE 1000 MG ATIVAN PO, ONLY WANTED TO TAKE 250MG, ONE PILL DESPITE EDUCATION PT CONTINUED TO REFUSE AND RETURNED 3 PILLS TO NURSES HAND
[2019-11-10] MEDS: OLANZAPINE 5 MG TABLET PO SCH (20:59)
[2019-11-10] MEDS: ATORVASTATIN 10 MG TABLET PO SCH (21:24)
[2019-11-10] MEDS: TEMAZEPAM 7.5 MG CAPSULE PO PRN (22:18)
[2019-11-11] MEDS: ACETAMINOPHEN 325 MG TABLET PO PRN ×2 (01:11→12:22)
--- NOTE | 2019-11-11 01:34 | NUR ---
GPS RN NOTE PT WOKE UP ASKING FOR TYLENOL FOR BACK PAIN, RATES PAIN 6/10. TYLENOL 325MG 2 TABS GIVEN PO. PT WENT BACK TO SLEEP. WILL CONTINUE TO MONITOR.
--- NOTE | 2019-11-11 05:58 | NUR ---
GPS RN NOTE SKIN CHECK DONE. NO NEW SKIN ISSUES. PICTURES TAKEN AND PLACED IN CHART. WILL CONTINUE TO MONITOR PT.
[2019-11-11 08:00] VITALS: BP 128/71
[2019-11-11] MEDS: PANTOPRAZOLE 40 MG TABLET.DR PO SCH (08:26)
[2019-11-11] MEDS: CALCIUM CARBONATE (1250) 500 MG TABLET PO SCH (08:26)
[2019-11-11] MEDS: ASCORBIC ACID 500 MG TABLET PO SCH (08:26)
[2019-11-11] MEDS: LORAZEPAM 0.5 MG TABLET PO PRN ×2 (08:26→14:49)
[2019-11-11] MEDS: OLANZAPINE 2.5 MG TABLET PO SCH (08:26)
--- NOTE | 2019-11-11 08:26 | NUR ---
gps police aide: notes pt with anxiousness and request for ativan. ativan 0.5mg po given as ordered. will continue to monitor.
[2019-11-11] MEDS: FERROUS SULFATE (325 MG) 325 MG/TAB TABLET PO SCH (08:27)
[2019-11-11] MEDS: BENZTROPINE MESYLATE (1 MG) 1 MG TABLET PO SCH ×2 (08:27→17:07)
[2019-11-11] MEDS: LOSARTAN POTASSIUM 50 MG TABLET PO SCH (08:27)
[2019-11-11] MEDS: DIVALPROEX SODIUM 500 MG TABLET.DR PO SCH ×2 (08:27→12:22)
--- NOTE | 2019-11-11 09:26 | NUR ---
gps gopherman: notes up and about in unit. no change in behavior, remains hyperverbal with paranoid ideation. will continue to monitor.
--- NOTE | 2019-11-11 12:00 | NUR ---
gps ux developer: psychiatrist f/u seen by dr. hendricks. pt for d'c planning per md. social service assistant making arrangement. pt made aware.
--- NOTE | 2019-11-11 14:49 | NUR ---
gps packaging associate: notes pt with anxiousness and request for ativan. ativan 0.5mg po given as ordered. will continue to monitor.
[2019-11-11 16:00] VITALS: BP 132/59
--- NOTE | 2019-11-11 16:00 | NUR ---
gps head batcher: notes up and about in unit. no change in behavior, remains hyperverbal with paranoid ideation. will continue to monitor.
[2019-11-11] MEDS ORDERED: DIVALPROEX SODIUM 250 MG TABLET.DR PO SCH (17:00)
[2019-11-11 20:50] VITALS: BP 133/65
[2019-11-11] MEDS: OLANZAPINE 5 MG TABLET PO SCH (21:15)
[2019-11-11] MEDS: ATORVASTATIN 10 MG TABLET PO SCH (21:20)
[2019-11-12] MEDS: ACETAMINOPHEN 325 MG TABLET PO PRN (04:07)
--- NOTE | 2019-11-12 05:14 | NUR ---
GPS RN NOTE PT WOKE UP AROUND 0400 ASKING FOR TYLENOL FOR BILATERAL LOWER EXTREMITY PAIN. RATES PAIN 6/10. TYLENOL 325MG 2 TABS/650MG GIVEN PO. PT WENT BACK TO SLEEP A FEW MINUTES AFTER TAKING THE MEDICATION AND WOKE UP AT ABOUT 0510 AND REPORTED A PAIN LEVEL OF 2/10. PT IN GOOD CONDITION, NO S/S OF DISTRESS, A/O X2-3. NO BEHAVIORAL ISSUES. WILL CONTINUE TO MONITOR AND ENDORSE TO AM SHIFT.
[2019-11-12] MEDS: OLANZAPINE 2.5 MG TABLET PO SCH (07:25)
[2019-11-12] MEDS: PANTOPRAZOLE 40 MG TABLET.DR PO SCH (07:25)
[2019-11-12] MEDS: DIVALPROEX SODIUM 500 MG TABLET.DR PO SCH (07:26)
[2019-11-12 07:50] LABS: ALBUMIN 3.2 g/dL (3.4-5.0); BILIRUBIN,TOTAL 0.2 mg/dL (0.2-1.0); CALCIUM, SERUM 8.9 mg/dL (8.5-10.1); CREATININE 0.8 mg/dL (0.6-1.3); TOTAL PROTEIN, SERUM 7.7 g/dL (6.4-8.2)
[2019-11-12 08:00] VITALS: BP 135/81
[2019-11-12] MEDS: FERROUS SULFATE (325 MG) 325 MG/TAB TABLET PO SCH (08:18)
[2019-11-12 08:19] VITALS: BP 135/81
[2019-11-12] MEDS: LOSARTAN POTASSIUM 50 MG TABLET PO SCH (08:19)
[2019-11-12] MEDS: ASCORBIC ACID 500 MG TABLET PO SCH (08:19)
[2019-11-12] MEDS: BENZTROPINE MESYLATE (1 MG) 1 MG TABLET PO SCH (08:19)
[2019-11-12] MEDS: CALCIUM CARBONATE (1250) 500 MG TABLET PO SCH (08:19)
[2019-11-12 08:49] LABS: BASOPHILS % (AUTO) 0.4 % (0.0-2.0); HEMATOCRIT 37 % (33-45); HEMOGLOBIN 12.2 g/dL (11.5-14.8); LYMPHOCYTES # (AUTO) 2.9 /CMM (0.8-4.8); LYMPHOCYTES % (AUTO) 41.2 % (20.0-44.0); MEAN CORPUSCULAR HGB CONC 33 g/dl (31.0-36.0); MEAN CORPUSCULAR VOLUME 92 fL (82-100); MONOCYTES # (AUTO) 0.4 /CMM (0.1-1.30); MONOCYTES % (AUTO) 5.9 % (2.0-12.0); NEUTROPHILS # (AUTO) 3.7 /CMM (1.8-8.9); NEUTROPHILS % (AUTO) 52.5 % (43.0-81.0); PLATELET COUNT (AUTO) 246 /CMM (150-450); RED BLOOD CELL COUNT(AUTO) 4.01 MIL/uL (4.0-5.2); WHITE BLOOD COUNT (AUTO) 7.1 K/uL (4.3-11.0)
--- NOTE | 2019-11-12 09:00 | NUR ---
RN NOTE- PT IN ROOM, NEEDY, HYPERVERBAL, ALERT ORIENTED TO SELF. CONFUSION PRESENT, DELUSIONAL. DENIES SI HI AH VH. PO INTAKE GOOD. OOB IN HALLS AT TIMES.
--- NOTE | 2019-11-12 10:55 | NUR ---
DISCHARGE NOTE: Pt will be discharged at 11:00am via [facility] to [facility] Address: [address] [place] [address] . Pt has no family to notify. Pts mood is euthymic with congruent affect. Pt denies suicidal/homicidal ideation and denies visual/auditory hallucinations. Pt will be under the care of Psychiatrist: Dr. Bird Nugent Address: [address] [place] [address] and Machine Assembler For Puller Over: Dr. Socrates Salinas [address] [address] . The multidisciplinary exit care form was done, printed, signed, and given to the patient.
--- NOTE | 2019-11-12 11:15 | NUR ---
RADIOLOGY INTERVENTIONAL PHYSICIAN NOTE- PT DC AT THIS TIME VIA GURNEY AND AMBULANCE TO [facility]. PT IS ALERT ORIENTED TO PERSON PLACE TIME. MINOR CONFUSION PRESENT, DENIES SI HI AH VH AT TIME OF DC. VS ARE FOLLOWS- B/P -135/81, HR- 60, RR- 18, TEMP-98.0, SATURATION AT 94% RA. PT DC PLANNING AND FOLLOW UP CARE REVIEWED W PT AND VERBALIZED UNDERSTANDING. ALSO REVIEWED W AMBULANCE STAFF. FACILITY AWARE OF TRANSFER. VALUABLES RETURNED AND SIGNED FOR. ID [id number] REMOVED. ESCORTED OFF UNIT BY STAFF. SW NOTE- DISCHARGE NOTE: Pt will be discharged at 11:00am via [facility] to [facility] Address: [address] [place] [address] . Pt has no family to notify. Pts mood is euthymic with congruent affect. Pt denies suicidal/homicidal ideation and denies visual/auditory hallucinations. Pt will be under the care of Psychiatrist: Dr. Bird Nugent Address: [address] [place] [address] and Endoscopy Support Specialist: Dr. Socrates Salinas [address] [facility] [address] [place] [id number] . The multidisciplinary exit care form was done, printed, signed, and given to the patient.
== END 2019-11-12 11:15 | DRG 885 ==
LOC: ER 15:27 → GPS 19:34
PROVIDERS: ADMIT Psychiatry & Neurology Psychosomatic Medicine; ATTEND Legal Medicine
DX: F25.9 Schizoaffective disorder, unspecified (principal); I10 Essential (primary) hypertension; E78.5 Hyperlipidemia, unspecified; J45.909 Unspecified asthma, uncomplicated; G89.29 Other chronic pain; F29 Unspecified psychosis not due to a substance or known physiological condition; E66.01 Morbid (severe) obesity due to excess calories; Z68.37 Body mass index [BMI] 37.0-37.9, adult
CPT/HCPCS: 36415; 80048-TC; 80053-TC; 80061-TC; 80076-TC; 80164-TC; 82565-TC; 82962-TC; 85025-TC; 87081-TC; 97116-TC; 97530-TC; G0480